=== PATIENT | male | born 1985 | race Caucasian/White ===

== ENCOUNTER 2021-08-10 10:21 | Emergency (ER) | payer OTHER ==
[~2021-08-10] VITALS: Ht 172.7 cm; Wt 77.1 kg
--- NOTE | 2021-08-10 10:30 | NUR ---
MD at bedside, medical screening exam in progress.
[2021-08-10] MEDS ORDERED: ACETAMINOPHEN 325 MG TABLET ONE (10:54)
[2021-08-10] MEDS ORDERED: ACETAMINOPHEN 325 MG TABLET PO ONE (11:00)
[2021-08-10] MEDS ORDERED: LIDOCAINE HCL 2% 20 ML VIAL ONE (11:01)
[2021-08-10] MEDS ORDERED: NAPR-1164 PO (11:19)
--- NOTE | 2021-08-10 11:31 | NUR ---
Patient discharged to home in stable condition. Written and verbal after care instructions given. Patient verbalizes understanding of instructions. Stressed follow up or return to ER for worsening s/s.
[2021-08-10 11:32] VITALS: BP 125/80
== END 2021-08-10 11:38 | disposition home or self-care (01) ==
LOC: ER 10:25
DX: S92.512A Displaced fracture of proximal phalanx of left lesser toe(s), initial encounter for closed fracture (principal); W22.8XXA Striking against or struck by other objects, initial encounter; Y92.89 Other specified places as the place of occurrence of the external cause
CPT/HCPCS: 28515; 73660; 99284; J3490; A4663